=== PATIENT | male | born 1965 | race Hispanic/Latino ===

== ENCOUNTER 2017-08-20 07:40 | Emergency (ER) | payer MEDICAID ==
[2017-08-20 07:52] VITALS: O2SAT 99
[2017-08-20] MEDS ORDERED: Lidocaine 5% Patch TD STA (08:15)
[2017-08-20] MEDS ORDERED: Lidocaine 5% Patch TD ONE (08:23)
--- NOTE | 2017-08-20 08:28 | C.PDOC ---
History Of Present Illness 51 year old male with history of chronic back pain and herniated disks, complains of back pain radiating down right leg for 3 days. Reports no relief with Advil. Denies abdominal pain, diarrhea, constipation, dysuria, incontinence , weakness or numbness. Time Seen by Provider: 08/20/17 08:08 Chief Complaint (Nursing): Back Pain History Per: Patient History/Exam Limitations: no limitations Onset/Duration Of Symptoms: Days (3) Past Medical History Reviewed: Historical Data, Nursing Documentation, Vital Signs Vital Signs: Last Vital Signs Temp 97.6 F 08/20/17 09:44 Pulse 64 08/20/17 09:44 Resp 20 08/20/17 09:44 BP 133/87 08/20/17 09:44 Pulse Ox 99 08/20/17 09:44 - Medical History PMH: Back Problems, HTN Family History: States: No Known Family Hx - Social History Hx Tobacco Use: No Hx Alcohol Use: No Hx Substance Use: No - Immunization History Hx Tetanus Toxoid Vaccination: No Hx Influenza Vaccination: No Hx Pneumococcal Vaccination: No Review Of Systems Except As Marked, All Systems Reviewed And Found Negative. Respiratory: Negative for: Shortness of Breath Gastrointestinal: Negative for: Abdominal Pain, Diarrhea Genitourinary: Negative for: Dysuria, Incontinence Musculoskeletal: Positive for: Back Pain, Leg Pain (Radiating down the right leg ) Neurological: Negative for: Weakness, Numbness Physical Exam - Physical Exam Appears: Non-toxic, No Acute Distress Skin: Warm, Dry, No Rash Head: Atraumatic, Normacephalic Eye(s): bilateral: Normal Inspection Oral Mucosa: Moist Neck: Normal ROM, No Midline Cervical Tenderness, No Paracervical Tenderness Chest: Symmetrical, No Tenderness Cardiovascular: Rhythm Regular, No Murmur Respiratory: Normal Breath Sounds, No Rales, No Rhonchi, No Stridor, No Wheezing Back: No Vertebral Tenderness, No Decreased ROM, No Muscle Spasm, Other ((+) Paralumbar tenderness. (-) Rash.) Extremity: Bilateral: Atraumatic, Normal Color And Temperature, Normal ROM Neurological/Psych: Oriented x3, Normal Speech, Normal Motor ED Course And Treatment O2 Sat by Pulse Oximetry: 99 (RA) Pulse Ox Interpretation: Normal Medical Decision Making Medical Decision Making: Impression: exacerbation of chronic back pain Plan: * Toradol * Valium * Lidoderm Reassess: Upon reevaluation patient reports feeling better. Patient feels comfortable going home and will be discharged with Rx. Disposition Counseled Patient/Family Regarding: Diagnosis, Need For Followup, Rx Given - Disposition Disposition: HOME/ ROUTINE Disposition Time: 09:24 Condition: IMPROVED Additional Instructions: Follow up with your primary medical doctor or clinic in 2-5 days for further evaluation. Take medications as prescribed. Return to the emergency department at any time if symptoms persist or worsen. Prescriptions: Cyclobenzaprine [Cyclobenzaprine HCl] 10 mg PO TID #30 tab Naproxen [Naprosyn] 1 tab PO BID PRN #25 tab PRN Reason: Pain Instructions: Lumbar Radiculopathy (ED) Forms: [employer] (Lithuanian) - POA Present On Arrival: None - Clinical Impression Clinical Impression: Sciatica, Low back pain - PA / [employer]ATOR / Resident Statement MD/DO has reviewed & agrees with the documentation as recorded. - Scribe Statement The provider has reviewed the documentation as recorded by the Scribangeles De Los Santos All medical record entries made by the Liamibangeles were at my direction and personally dictated by me. I have reviewed the chart and agree that the record accurately reflects my personal performance of the history, physical exam, medical decision making, and the department course for this patient. I have also personally directed, reviewed, and agree with the discharge instructions and disposition.
[2017-08-20 09:45] VITALS: BP 133/87; PULSE 64; RESP 20; TEMP 97.6
== END 2017-08-20 09:48 | disposition home or self-care (01) ==
LOC: C.ER 07:40
DX: M54.40 Lumbago with sciatica, unspecified side (principal); I10 Essential (primary) hypertension
CPT/HCPCS: 96372; 99283; J1885